=== PATIENT | female | born 1945 | race Caucasian/White ===

== ENCOUNTER 2023-01-26 10:25 | Emergency (ER) | payer MEDICARE, SELFPAY ==
--- NOTE | ~2023-01-26 | XR_ITS ---
XR chest 2V 01/26/2023 10:49 Indication: Shortness of breath. Rapid heart rate. Procedure: 2 view chest Comparison: No prior studies for comparison. Findings: Left lower lobe airspace disease which may represent atelectasis or pneumonia. Small left p leural effusion. Heart size normal. No pneumothorax. Impression: 1: Left lower lobe airspace disease may represent atelectasis or developing pneumonia. 2: Small left pleural effusion. Reviewed, dictated and finalized at location B. Impression: 1: Left lower lobe airspace disease may represent atelectasis or developing pne umonia. 2: Small left pleural effusion.
--- NOTE | 2023-01-26 10:33 | ECG_ITS ---
Measurements Intervals [place] Rate: 116 P: [place]: 0 QRS: -50 QRSD: 116 T: 200 QT: 342 QTc: 476 Interpretive Statements ATRIAL FIBRILLATION WITH RAPID VENTRICULAR RESPONSE LEFT ANTERIOR FASCICULAR BLOCK BORDERLINE ST-T WAVE ABNORMALITY- DIFFUSE LEADS BASELINE ARTIFACT- I, II, III, AVR, AVL, V1 ABNORMAL ECG NO PREVIOUS ECG AVAILABLE FOR COMPARISON Electronically Signed On 01-26-2023 11:47:25 CDT by Damon Lawrence D.O.
[2023-01-26 10:35] VITALS: BP 127/96; PULSE 81; RESP 20; TEMP 37; O2SAT 94
--- NOTE | 2023-01-26 10:39 | ED.SOB ---
HPI - SOB/Dyspnea General Chief Complaint: Shortness of Breath/Dyspnea Stated Complaint: Shortness of Breath Time Seen by Provider: 01/26/23 10:35 Source: patient, RN notes reviewed and old records reviewed Mode of arrival: ambulatory Limitations: no limitations History of Present Illness HPI Narrative: 78 year old female who presents to [facility] with complaints of shortness of breath especially with any exertion for the past week and orthopnea reported. Patient also reports that she has noted some swelling to her bilateral legs from knees down more prominent to pretibial area, ankles, and feet. Patient admits to having some palpitations and fluttering in her chest. Patient reports that she has seen a studio potter at [facility] through [facility] in [place] but has not been told she has had atrial fibrillation or had any heart attack in the past. Patient reports that she is diabetic, has hypertension, and also hyperlipidemia. MD elicited complaint: shortness of breath Pertinent past history: diabetes and other (hypertension, dyspnea and swelling of ankles and feet and also weight gain since November ) Onset (ago): week(s) (1) Exacerbating factors: lying flat, exertion and talking Related Data Home Medications Medication Instructions Recorded Confirmed B-complex with vitamin C 1 tablet PO DAILY 01/26/23 01/26/23 amlodipine 5 mg tablet 5 mg DAILY 01/26/23 01/26/23 aspirin 81 mg capsule 81 mg PO DAILY 01/26/23 01/26/23 calcium carbonate 600 mg-vitamin 1 tablet PO BID 01/26/23 01/26/23 D3 5 mcg (200 unit) tablet coenzyme Q10 100 mg capsule (Co 100 mg PO DAILY 01/26/23 01/26/23 Q-10) estradiol 0.5 mg tablet 0.5 mg PO DAILY 01/26/23 01/26/23 fenofibrate 160 mg tablet 160 mg PO HS 01/26/23 01/26/23 levothyroxine 200 mcg tablet 200 mcg PO DAILY 01/26/23 01/26/23 loratadine 10 mg tablet (Claritin) 10 mg PO DAILY 01/26/23 01/26/23 metformin 1,000 mg tablet 1,000 mg PO BID 01/26/23 01/26/23 metoprolol tartrate 50 mg tablet 50 mg PO BID 01/26/23 01/26/23 pioglitazone 15 mg tablet 15 mg PO DAILY 01/26/23 01/26/23 semaglutide 1 mg/dose (4 mg/3 mL) 1 mg subcut WEEKLY 01/26/23 01/26/23 subcutaneous pen injector (Ozempic) simvastatin 20 mg tablet 20 mg PO HS 01/26/23 01/26/23 valsartan 320 mg tablet 320 mg PO DAILY 01/26/23 01/26/23 Allergies Allergy/AdvReac Type Severity Reaction Status Date / Time lisinopril AdvReac Mild Cough Verified 01/26/23 10:35 Review of Systems Review of Systems: CONSTITUTIONAL: Denies fever, chills, or sweats. EYES: Denies visual changes, redness, or discharge. ENT: Denies rhinorrhea, congestion, sore throat, or otalgia. CARDIOVASCULAR: Denies chest pain,positive for palpitations, bilateral lower leg and feet edema. RESPIRATORY: Reports occasional cough, dyspnea with minimal exertion and also orthopnea. GASTROINTESTINAL: Denies abdominal pain, nausea, vomiting, or diarrhea. GENITOURINARY: Denies dysuria or hematuria. SKIN: Denies rash or itching. MUSCULOSKELETAL: Denies back pain, joint pain, or myalgia. NEUROLOGIC: Denies headache, numbness, or weakness. PSYCHIATRIC: Denies anxiety or depression. All systems reviewed & are unremarkable except as noted in HPI and below PMFSH Past Medical History Medical History Hyperlipidemia Hypertension Hypothyroidism Type 2 diabetes mellitus Surgical History Surgical History (Updated 01/26/23 @ 15:28 by Gisela Cardoza PA-C) History of cholecystectomy History of thyroidectomy Family History Family History Other Adopted Unknown family medical history Social History Social History (Updated 01/27/23 @ 00:11 by Gisela Cardoza PA-C) Social History: Surrogate medical decision maker: Sergio Diaz, son. Code status: Full code. Smoking status: Never smoker Alcohol intake: never Substance use: never Substance
[2023-01-26 10:40] VITALS: PULSE 116; O2SAT 100
== END 2023-01-26 11:20 | disposition short-term general hospital (02) ==
LOC: EXPBETH 10:29
PROVIDERS: Emergency Provider Registered Nurse
DX: I48.91 Unspecified atrial fibrillation (principal); R06.02 Shortness of breath; Z20.822 Contact with and (suspected) exposure to COVID-19; E78.5 Hyperlipidemia, unspecified; I10 Essential (primary) hypertension; E03.9 Hypothyroidism, unspecified; E11.9 Type 2 diabetes mellitus without complications
CPT/HCPCS: 71046; 87426; 87804; 93005; 99205; C9803; G0463

== ENCOUNTER 2023-01-26 11:50 | Inpatient (IN) | payer MEDICARE, SELFPAY ==
[2023-01-26] VITALS (17 sets, daily range): BP systolic 106–138; BP diastolic 85–101; PULSE 77–136; RESP 17–25; TEMP 36.2–36.4; O2SAT 96–100
--- NOTE | 2023-01-26 12:06 | ECG_ITS ---
Measurements Intervals [place] Rate: 118 P: [place]: 0 QRS: -46 QRSD: 111 T: 220 QT: 321 QTc: 451 Interpretive Statements ATRIAL FIBRILLATION WITH RAPID VENTRICULAR RESPONSE LEFT ANTERIOR FASCICULAR BLOCK POOR R WAVE PROGRESSION, ANTERIOR LEADS BORDERLINE ST-T WAVE ABNORMALITY- DIFFUSE LEADS BASELINE ARTIFACT- I, II, III, AVR, AVL ABNORMAL ECG COMPARED TO ECG 01/26/2023 10:40:53 NO SIGNIFICANT CHANGES Electronically Signed On 01-26-2023 12:20:34 CDT by Damon Lawrence D.O.
[2023-01-26 12:17] LABS: Basophils Percent Auto 0.6 % (0.2-1.2); Eosinophils Absolute Auto 0.1 K/mm3 (0-0.3); Eosinophils Percent Auto 1.8 % (0-4.4); Hematocrit 36.6 % (37.0-47.0); Hemoglobin 11.8 g/dL (12.0-15.0); Immature Granulocyte Absolute 0.01 K/mm3 (0.00-0.031); Immature Granulocyte Percent A 0.2 % (0-0.5); Lymphocytes Absolute Auto 0.92 K/mm3 (0.9-3.2); Lymphocytes Percent Auto 14.7 % (18.3-44.2); Mean Corpuscular HGB Conc 32.2 g/dl (32-36); Mean Corpuscular Hemoglobin 29.9 pg (26-34); Mean Corpuscular Volume 92.9 fl (80-100); Mean Platelet Volume 10.9 fl (7.4-10.4); Monocytes Absolute Auto 0.4 K/mm3 (0.1-0.6); Monocytes Percent Auto 6.5 % (2.6-8.5); Neutrophils Absolute Auto 4.8 K/mm3 (1.3-6.7); Neutrophils Percent Auto 76.2 % (45.5-73.1); Platelet Count Result 278 k/mm3 (150-375); Red Blood Count 3.94 M/mm3 (4.2-5.4); Red Cell Distribution Width 13.9 % (11.5-14.5); White Blood Count 6.3 K/mm3 (4.5-10.0)
[2023-01-26 12:32] LABS: Alanine Aminotransferase 18 U/L (6-35); Albumin Level 4.1 g/dL (3.5-5.1); Alkaline Phosphatase 34 U/L (38-126); Anion Gap 9 mmol/L (8-16); Aspartate Amino Transferase 26 U/L (14-36); Bilirubin,Total 0.8 mg/dL (0.2-1.3); Blood Urea Nitrogen 37 mg/dL (7-17); Calcium 8.6 mg/dL (8.4-10.2); Carbon Dioxide 24 mmol/L (22-30); Chloride 108 mmol/L (98-107); Estimated Glomerular Filt Rate 40; Glucose 161 mg/dL (65-110); Sodium 141 mmol/L (137-145)
--- NOTE | 2023-01-26 12:39 | PC.NURSE ---
Lab called regarding add ons.
[2023-01-26 13:01] LABS: INR 1.2; Prothrombin Time 16.3 Seconds (11.1-14.7)
[2023-01-26 13:05] LABS: NT Pro B Type Natriuretic Pept 5570 pg/mL (19.9-100)
--- NOTE | 2023-01-26 13:48 | ED.SOB ---
HPI - SOB/Dyspnea General Chief Complaint: Shortness of Breath/Dyspnea Stated Complaint: SOB, new afib, LE swelling Time Seen by Provider: 01/26/23 12:09 Source: patient Mode of arrival: ambulatory Limitations: no limitations History of Present Illness HPI Narrative: 78-year-old with a history of hypertension, hyperlipidemia, diabetes here with complaints of shortness of breath for past 1-1/2-week. Patient states that even with minimal ambulation she gets extremely short winded. Patient also states that she was in the grocery store could not walk even a half the distance. She denied any chest pain. No history of fever or chills. Denies cough. Family reports that she has a history of A-fib in the past but when she saw the hood fitter they could never identify A-fib.. MD elicited complaint: shortness of breath Onset (ago): week(s) (1.5) Severity: moderate Exacerbating factors: lying flat and exertion Relieving factors: rest Associated symptoms: denies other symptoms Treatment prior to arrival: none Related Data Home oxygen amount: none Home Medications Medication Instructions Recorded Confirmed amlodipine 5 mg tablet 5 mg DIRECTED 01/26/23 01/26/23 estradiol 0.5 mg tablet 0.5 mg DIRECTED 01/26/23 01/26/23 fenofibrate 160 mg tablet 160 mg DIRECTED 01/26/23 01/26/23 levothyroxine 200 mcg tablet 200 mcg DIRECTED 01/26/23 01/26/23 metformin 1,000 mg tablet 1,000 mg DIRECTED 01/26/23 01/26/23 metoprolol tartrate 50 mg tablet 50 mg DIRECTED 01/26/23 01/26/23 pioglitazone 15 mg tablet 15 mg DIRECTED 01/26/23 01/26/23 simvastatin 20 mg tablet 20 mg DIRECTED 01/26/23 01/26/23 valsartan 320 mg tablet 320 mg DIRECTED 01/26/23 01/26/23 Allergies Allergy/AdvReac Type Severity Reaction Status Date / Time lisinopril AdvReac Mild Cough Verified 01/26/23 10:35 Review of Systems Constitutional: Constitutional: Reports no additional constitutional complaints Eyes: Eyes: Reports no additional eye complaints ENT: Reports system reviewed and no additional complaints, except as documented Cardiovascular: Cardiovascular: Reports no additional cardiovascular complaints Respiratory: Respiratory: Reports as per HPI Gastrointestinal: Gastrointestinal: Reports no additional gastrointestinal complaints Musculoskeletal: Musculoskeletal: Reports no additional musculoskeletal complaints Neurologic: Reports system reviewed and no additional complaints, except as documented Psychiatric: Psychiatric: Reports no additional psychiatric complaints Endocrine: Endocrine: Reports no additional endocrine complaints Hematologic/Lymphatic: Hematologic/Lymphatic: Reports no additional hematologic/lymphatic complaints Allergic/Immunologic: Allergic/Immunologic: Reports no additional allergic/immunologic complaints Exam Narrative: GENERAL: Well-appearing, well-nourished, and in no acute distress. HEAD: Normocephalic, atraumatic. EYES: PERRLA and EOMI. ENT: Nares clear, no rhinorrhea or epistaxis. Mucous membranes moist. NECK: Supple. CHEST: Clear to auscultation. Except for basilar crackles. HEART: Tachycardic irregularly irregular. ABDOMEN: Soft, nontender, nondistended, normal active bowel sounds. EXTREMITIES: Normal range of motion. 2+ edema SKIN: Warm, dry, no rash. NEURO: No focal deficits. Alert and oriented x3. PSYCH: Normal mood and affect. Course Course Emergency Course: Notified patient and the family about her lab work, EKG findings. Agreed for admission. EKG showed A-fib with RVR with a heart rate 123 we will give her 10 of Cardizem and her BNP is elevated we will give her 40 of Lasix IV. We will admit her to the hospitalist consult cardiology Vital Signs Vital signs: Vital Signs Temperature 36.2 C L 01/26/23 11:53 Pulse Rate 102 H 01/26/23 11:53 Respiratory Rate 22 H 01/26/23 11:53 Blood Pressure 106/85 01/26/23 11:53 Pulse Oximetry 99 01/26/23 11:53 Oxygen Delivery Room
[2023-01-26] MEDS: dilTIAZem HCl INJ 25 MG/5 ML VIAL 10 MG IV PUSH (14:18)
[2023-01-26 14:50] LABS: Glucose Point of Care 137 mg/dl (65-105)
--- NOTE | 2023-01-26 15:24 | PM.IMHP ---
H&P: HPI History of Present Illness Date/Time: 01/26/23 16:30 Chief Complaint: Shortness of breath and new onset atrial fibrillation. Narrative: This is a very pleasant 78-year-old female with hypertension, hyperlipidemia, hypothyroidism, and type 2 diabetes mellitus who presented to the emergency department via EMS from [facility] for evaluation of shortness of breath and new onset atrial fibrillation. The patient provides the following history. Over the last 1 week or so she has developed sensations of racing heart ?like it is galloping? which has been nearly constant since the outset. She has been feeling short of breath with exertion and she is having difficulty sleeping due to feelings of shortness of breath when lying flat. Her legs have started to swell and are feeling tight. On occasion she feels lightheaded and dizzy and she has had some nausea and a couple of episodes of emesis. She decided to go to [facility] today for evaluation where she was found to be in new onset atrial fibrillation. She has not had exertional chest pain, she had a previous sleep study which showed no evidence of sleep apnea, she denies significant caffeine and alcohol use, and she believes her thyroid levels have been within normal limits. She has no known history of cardiac disease though she was referred to a general service officer with [facility] in [place] a couple of years ago ?because they were suspicious I had CHF.? Due to findings concerning for CHF she was given a dose of IV Lasix in the ED and she has had good urine output and she reports feeling a bit better at this time. Review of Systems Review of Systems: Twelve systems were reviewed. No fever, chills, or sweats. She denies cold and flu symptoms. No cough. Except as documented, all other systems were reviewed and are negative. [facility] Past Medical History Medical History Hyperlipidemia Hypertension Hypothyroidism Type 2 diabetes mellitus Surgical History Surgical History (Updated 01/26/23 @ 15:28 by Gisela Cardoza PA-C) History of cholecystectomy History of thyroidectomy Family History Family History Other Adopted Unknown family medical history Social History Social History (Updated 01/27/23 @ 00:11 by Gisela Cardoza PA-C) Social History: Surrogate medical decision maker: Sergio Diaz, son. Code status: Full code. Smoking status: Never smoker Alcohol intake: never Substance use: never Substance use type: does not use Lack of Transportation: No Lack of Food: Never True Current Housing: I Have Housing Concerned About Future Housing: No Difficulty Paying Gas/Electric Bills: No Difficulty Paying for Meds: No Currently Unemployed: No Education: High School Diploma/GED Difficulty w/ Childcare or Family Care: No Spiritual care concerns: No Meds Home Medications and Allergies Home Medications Medication Instructions Recorded Confirmed Type B-complex with vitamin C 1 tablet PO DAILY 01/26/23 01/26/23 History amlodipine 5 mg tablet 5 mg DAILY 01/26/23 01/26/23 History aspirin 81 mg capsule 81 mg PO DAILY 01/26/23 01/26/23 History calcium carbonate 600 mg-vitamin 1 tablet PO BID 01/26/23 01/26/23 History D3 5 mcg (200 unit) tablet coenzyme Q10 100 mg capsule (Co 100 mg PO DAILY 01/26/23 01/26/23 History Q-10) estradiol 0.5 mg tablet 0.5 mg PO DAILY 01/26/23 01/26/23 History fenofibrate 160 mg tablet 160 mg PO HS 01/26/23 01/26/23 History levothyroxine 200 mcg tablet 200 mcg PO DAILY 01/26/23 01/26/23 History loratadine 10 mg tablet (Claritin) 10 mg PO DAILY 01/26/23 01/26/23 History metformin 1,000 mg tablet 1,000 mg PO BID 01/26/23 01/26/23 History metoprolol tartrate 50 mg tablet 50 mg PO BID 01/26/23 01/26/23 History pioglitazone 15 mg tablet 15 mg PO DAILY 01/26/23 01/26/23 History
[2023-01-26] MEDS: FUROSEMIDE INJ 100 MG/10 ML VIAL (15:30)
[2023-01-26] MEDS: FUROSEMIDE INJ 40 MG/4 ML VIAL IV PUSH (15:30)
[2023-01-26 16:32] LABS: Hemoglobin A1C 6.7 % (<5.7)
--- NOTE | 2023-01-26 17:04 | PM.CNCAR ---
Assessment and Plan Assessment and plan (1) Atrial fibrillation with rapid ventricular response: Code(s): I48.91 - Unspecified atrial fibrillation Status: Acute Plan This is a 78-year-old lady who indicates by her history that she is known to have paroxysmal atrial fibrillation for several years. She is developing symptoms of shortness of breath and some evidence of CHF and presents with AFib with RVR. One would be fairly safe to presume she has been in atrial fibrillation for at least a week or 2 who have when the symptoms began. She otherwise is in no significant distress at this time. I indicated to the patient and her family that my initial tendency would be to recommend rate control and anticoagulation since the atrial fibrillation I believe has been present for a number of days. If she is stable any attempted cardioversion should be deferred after until she has been anticoagulated for at least 4 weeks. I will start out by advancing her metoprolol dosage from 50-100 mg, start apixaban 5 mg q.12 hours and I will give her some furosemide for her swelling and shortness of breath. Echocardiogram will be ordered. Her EKG is significantly abnormal with very poor precordial R-wave voltage is but she does state she has been evaluated by a machine washer elsewhere not found to have any significant structural cardiac findings. If we can provide rate control anticoagulation improve her symptomatology following discharge she tends to follow-up with her established machine washer who she states is a member of [facility] for further management. Arturo Becerra MD [facility] History of Present Illness History of Present Illness Consult date/time: 01/26/23 17:04 Reason For Visit: Atrial Fibrillation with RVR/CHF Narrative: This is a 78-year-old woman I am seeing at the request of the hospitalist because of atrial fibrillation. The patient is unknown to me prior to this encounter she receives her primary care and cardiovascular care elsewhere. She has been experiencing symptoms of shortness of breath with activity and for the last couple of days shortness of breath lying down in bed at night she had to get up at night the last couple of nights sitting in the edge of her bed to catch her breath. She has also noticed some increasing lower extremity edema. For these reasons she went to an urgent care center in [facility] and was felt to be in atrial fib with congestive heart failure and sent to [facility] emergency room for evaluation and admission. She receives her medical care elsewhere and so we do not have any immediate records of any of this although she is a reasonably good historian. Patient states that several years ago her primary care physician found her to be in atrial fibrillation and referred to a machine washer. She has sees her machine washer annually but she states that every time he sees her she is in normal rhythm. She reports having had an evaluation with echocardiography and stress testing without any significant abnormalities. She was in their office for the last appointment she believes in November of this year and was felt to be doing well at that time. She is not having any symptoms of chest pain pressure or heaviness. Her electrocardiogram here at [facility] shows AFib with rapid response and poor R-wave progression with a leftward axis. Her chest x-ray shows modest enlargement of her cardiac silhouette no significant congestion. Review of Systems Constitutional: Constitutional: Reports as per HPI Eyes: Eyes: Reports no additional eye complaints ENT: Reports system reviewed and no additional complaints, except as documented Cardiovascular: Comments: Nocturnal dyspnea and lower extremity edema Respiratory: Respiratory: Reports dyspnea on exertion Gastrointestinal: Gastrointestinal: Reports no additional gastrointestinal complaints Musculoskeletal: Musculoskeletal: Reports no additional musculosk
--- NOTE | 2023-01-26 17:05 | ADMGEN ---
This patient, Elena Diaz, was admitted to IMU Room 200-01 on 01/26/23 at 1635. Patient/family oriented to hospital policies and general routines including ID bracelet, bed and alarms, visiting hours, pain management, procedures, bathroom and other care routines, personal items, smoking policy, room service/diet, and visiting hours. Information on how to activate the Rapid Response Team has been discussed. Patient/Family are encouraged to report perceived risks to care and to ask questions if they do not understand what they are told or what they should do.
[2023-01-26 17:54] LABS: Troponin I < 0.012 ng/mL (0.000-0.034)
[2023-01-26] MEDS: FUROSEMIDE 20 MG TABLET PO (17:56)
[2023-01-26] MEDS: METOPROLOL SUCCINATE EXT REL 100 MG TABCR PO (17:56)
[2023-01-26 20:14] LABS: Free T4 Free Thyroxine Reflex 2.97 ng/dL (0.78-2.19)
[2023-01-26] MEDS: APIXABAN 5 MG TABLET PO (20:18)
[2023-01-26 20:38] LABS: Glucose Point of Care 140 mg/dl (65-105)
[2023-01-26 21:11] LABS: Troponin I < 0.012 ng/mL (0.000-0.034)
[2023-01-27] VITALS (18 sets, daily range): BP systolic 105–124; BP diastolic 71–94; PULSE 71–117; RESP 16–22; TEMP 35.6–36.5; O2SAT 97–99
--- NOTE | 2023-01-27 | ECHO_ITS ---
Patient Info Name: Elena Diaz Age: 78 years : 1945 Gender: Female Ht: 72 in Wt: 258 lbs BSA: 2.48 m2 HR: 120 bpm BP: 119 / 89 mmHg Heart Rhythm: Atrial Fibrillation Technical Quality: Fair Exam Date: 01/27/2023 10:46 AM Exam Location: [facility] Pulmonary Exam Room: 200 Patient Status: Inpatient Admit Date: 01/26/2023 Staff Ordering Physician: Josesito Guerin MD Plant Technical Specialist: Yamila John RDCS Attending Provider: Radha Bravo DO Exam Type: CA echo doppler color flow Study Info Indications - new onset afib chf Complete two-dimensional, color flow and Doppler transthoracic echocardiogram is performed. Summary 1. Complete two-dimensional, color flow and Doppler transthoracic echocardiogram is performed. 2. Left ventricular chamber dimension is mildly enlarged. 3. Left ventricular systolic function is severely reduced, estimated at 30-35%. 4. There is mildly increased left ventricular wall thickness. 5. The left ventricular diastolic function is indeterminate. 6. Right atrial chamber dimension is mildly enlarged. 7. Left atrial chamber dimension is severely enlarged. 8. Suspected patent foramen ovale visualized by color flow imaging. 9. There is mild aortic valve calcification. 10. The mitral valve has thickened leaflets and calcified annulus. 11. There is moderate mitral valve regurgitation. 12. There is mild tricuspid valve regurgitation. 13. Moderate pulmonary hypertension, estimated pulmonary arterial systolic pressure is 47 mmHg. 14. There is mild pulmonic regurgitation. 15. There is small pericardial effusion. Left Ventricle Left ventricular chamber dimension is mildly enlarged. Left ventricular systolic function is severely reduced, estimated at 30-35%. There is mildly increased left ventricular wall thickness. The left ventricular diastolic function is indeterminate. Right Ventricle Right ventricular chamber dimension is normal. Right ventricular systolic function is normal. Left Atria Left atrial chamber dimension is severely enlarged. Right Atria Right atrial chamber dimension is mildly enlarged. Atrial Septum Suspected patent foramen ovale visualized by color flow imaging. Aortic Valve The aortic valve is trileaflet. There is moderate aortic valve sclerosis. There is no aortic valve stenosis. There is trace aortic valve regurgitation. There is mild aortic valve calcification. Pulmonic Valve The pulmonic valve is normal. There is no pulmonic valve stenosis. There is mild pulmonic regurgitation. Mitral Valve The mitral valve has thickened leaflets and calcified annulus. There is no mitral valve stenosis. There is moderate mitral valve regurgitation. Tricuspid Valve The tricuspid valve leaflets are normal. There is no significant tricuspid valve stenosis. There is mild tricuspid valve regurgitation. Moderate pulmonary hypertension, estimated pulmonary arterial systolic pressure is 47 mmHg. Pericardium/Pleural The pericardium appears normal. There is small pericardial effusion. Inferior Vena Cava Dilated inferior vena cava with <50% collapse upon inspiration consistent with elevated right atrial pressure, 15 mmHg. Aorta The aortic root size at the sinus of Valsalva is normal. Left Ventricular Outflow Tract Name Value Normal LVOT 2D LVOT
[2023-01-27 00:16] LABS: Troponin I < 0.012 ng/mL (0.000-0.034)
[2023-01-27 05:15] LABS: Anion Gap 8 mmol/L (8-16); Blood Urea Nitrogen 37 mg/dL (7-17); Calcium 8.3 mg/dL (8.4-10.2); Carbon Dioxide 26 mmol/L (22-30); Chloride 105 mmol/L (98-107); Estimated Glomerular Filt Rate 43; Glucose 128 mg/dL (65-110); Magnesium 1.4 mg/dL (1.6-2.3); Potassium 3.5 mmol/L (3.4-5.0); Sodium 139 mmol/L (137-145)
[2023-01-27 08:12] LABS: Glucose Point of Care 113 mg/dl (65-105)
[2023-01-27] MEDS: VITAMIN B COMPLEX/VIT C CAPSULE 1 EACH PO (09:01)
[2023-01-27] MEDS: PIOGLITAZONE HCL 15 MG TAB PO (09:01)
[2023-01-27] MEDS: APIXABAN 5 MG TABLET PO ×2 (09:02→20:20)
[2023-01-27] MEDS: ASPIRIN 81 MG ENTERIC TABLET PO (09:02)
[2023-01-27] MEDS: LORATADINE 10 MG TABLET PO (09:02)
[2023-01-27] MEDS: estradioL 0.5 MG TABLET PO (09:02)
[2023-01-27] MEDS: FUROSEMIDE 20 MG TABLET PO (09:02)
[2023-01-27] MEDS: METOPROLOL SUCCINATE EXT REL 100 MG TABCR PO (09:58)
--- NOTE | 2023-01-27 10:28 | PM.IMPN ---
Progress Note: A&P Assessment and Plan (1) Atrial fibrillation with rapid ventricular response: Code(s): I48.91 - Unspecified atrial fibrillation Status: Acute Assessment and Plan: heart rate is still elevated despite increasing dose of metoprolol. Continue Eliquis. Appreciate Cardiology input. (2) Congestive heart failure: Code(s): I50.9 - Heart failure, unspecified Status: Acute Assessment and Plan: Continue diuretic. -1 L overall. Breathing is improved. (3) Renal insufficiency: Code(s): N28.9 - Disorder of kidney and ureter, unspecified Status: Acute Assessment and Plan: Baseline renal function is unknown. Monitor closely while diuresing. Records requested from her primary physician for comparison. (4) Hypertension: Code(s): I10 - Essential (primary) hypertension Status: Acute Assessment and Plan: Blood pressures were reviewed and they are stable. Continue antihypertensives and monitor. (5) Type 2 diabetes mellitus: Code(s): E11.9 - Type 2 diabetes mellitus without complications Status: Acute Assessment and Plan: Continue pioglitazone, hold metformin for now. Initiate sliding scale insulin, Accu-Cheks, and hypoglycemic protocol. Check A1c. (6) Hypothyroidism: Code(s): E03.9 - Hypothyroidism, unspecified Status: Acute Assessment and Plan: Continue levothyroxine and check TSH. Subjective Date/time seen: 01/27/23 10:28 Interval history: heart rate is still elevated Exam Narrative: General: Well-developed, nontoxic-appearing female sitting up in bed. Weight: 117.2 kg. HEENT: PERRL, EOMI. Sclera anicteric. Oral mucosa moist. Oropharynx clear. Neck: Supple. No obvious JVD. Respiratory: Mild conversational dyspnea. Lung sounds are a bit diminished but are otherwise clear to auscultation. Cardiovascular: Irregularly irregular rate and rhythm. Gastrointestinal: Abdomen is soft, nontender, and nondistended with positive bowel sounds. Skin: Warm and dry. No rash or lesions on limited exam. Extremities: No cyanosis or clubbing. 2+ pitting edema of the legs which softens towards the thighs. Neurological: Alert. Cranial nerves 2-12 are grossly intact. No gross focal deficits to casual conversation. Psychiatric: Pleasant and cooperative with normal mood and affect. Judgment and insight intact. Objective Data Vital Signs Vital Signs: Vital Signs - 24 hr 01/26/23 11:53 01/26/23 12:31 01/26/23 12:47 Temperature 97.1 F L Pulse Rate 102 H 111 H 119 H Respiratory Rate 22 H 21 H 21 H Blood Pressure 106/85 125/93 H 124/91 H Pulse Oximetry 99 96 96 Oxygen Delivery Room Air 01/26/23 13:00 01/26/23 13:02 01/26/23 14:31 Temperature Pulse Rate 115 H 118 H 111 H Respiratory Rate 25 H 23 H 21 H Blood Pressure 121/89 119/89 Pulse Oximetry 97 98 Oxygen Delivery 01/26/23 14:32 01/26/23 15:00 01/26/23 15:19 Temperature Pulse Rate 108 H 95 136 H Respiratory Rate 18 17 22 H Blood Pressure Pulse Oximetry 99 98 97 Oxygen Delivery 01/26/23 15:35 01/26/23 16:35 01/26/23 17:56 Temperature 97.3 F L Pulse Rate 110 H 112 H 112 H Respiratory Rate 19 20 Blood Pressure 138/101 H Pulse Oximetry 99 100 Oxygen Delivery 01/26/23 18:00 01/26/23 16:35 01/26/23 16:45 Temperature Pulse Rate 112 H 96 Respiratory Rate Blood Pressure Pulse Oximetry Oxygen Delivery Room Air 01/26/23 20:00 01/26/23 20:00 01/26/23 20:00 Temperature 97.5 F L Pulse Rate 77 109 H Respiratory Rate 20 Blood Pressure 114/87 Pulse Oximetry 100 Oxygen Delivery Room Air 01/26/23 22:00 01/26/23 23:32 01/26/23 23:59 Temperature 97.5 F L Pulse Rate 106 H 106 H Respiratory Rate 20 Blood Pressure 129/85 Pulse Oximetry 97 Oxygen Delivery Room Air 01/27/23 00:00 01/27/23 02:00 01/27/23 04:00 Temperature
--- NOTE | 2023-01-27 10:36 | PM.PNCARD ---
Progress Note: A&P Assessment and Plan (1) Atrial fibrillation with rapid ventricular response: Code(s): I48.91 - Unspecified atrial fibrillation Status: Acute Assessment and Plan: Heart rate is still a bit elevated. Continue metoprolol at this dose for now. May need further up titration or even plan for cardioversion depending on heart rate control before discharge. Continue Eliquis for anticoagulation. (2) Electrolyte imbalance: Code(s): E87.8 - Other disorders of electrolyte and fluid balance, not elsewhere classified Status: Acute Assessment and Plan: Potassium and magnesium were both low. Will give 4 g of IV magnesium and 40 mEq of p.o. potassium x1 (3) Hypertension associated with diabetes: Code(s): E11.59 - Type 2 diabetes mellitus with other circulatory complications; I15.2 - Hypertension secondary to endocrine disorders Status: Acute Assessment and Plan: Continue current regimen but blood pressure is a little soft and therefore will reduce her valsartan 160 mg daily (4) Chronic anticoagulation: Code(s): Z79.01 - terminal makeup operator (current) use of anticoagulants Status: Acute Assessment and Plan: Tolerating Eliquis Subjective Date/time seen: 01/27/23 10:36 Interval history: 78-year-old with atrial fibrillation, shortness of breath and palpitations Date of service 01/27/2023: Feeling a little bit better today but still feeling some palpitations and shortness of breath. No chest pain Review of Systems Constitutional: Constitutional: Reports as per HPI Eyes: Eyes: Reports no additional eye complaints ENT: Reports system reviewed and no additional complaints, except as documented Cardiovascular: Cardiovascular: Reports dyspnea on exertion Respiratory: Respiratory: Reports dyspnea on exertion Gastrointestinal: Gastrointestinal: Reports no additional gastrointestinal complaints Musculoskeletal: Musculoskeletal: Reports no additional musculoskeletal complaints Neurologic: Reports system reviewed and no additional complaints, except as documented Endocrine: Endocrine: Reports no additional endocrine complaints Hematologic/Lymphatic: Hematologic/Lymphatic: Reports no additional hematologic/lymphatic complaints Allergic/Immunologic: Allergic/Immunologic: Reports no additional allergic/immunologic complaints Exam Const: General: comfortable and no acute distress Other: Pleasant obese white female no distress of any kind HENMT: Mouth: Yes moist mucous membranes Eyes: Sclera: sclerae normal Neck: Neck: supple and no JVD Other: Carotid pulses are intact there are no audible bruits Resp: Effort & Inspection: normal respiratory effort Other: Breath sounds are somewhat tubular and distant no obvious wheezing or rales Cardio: Rhythm: abnormal rhythm irregularly irregular Other: PMI is difficult to palpate first and second heart sounds are irregular no audible murmur GI: Auscultation: normal bowel sounds Skin: General skin exam: normal color Neuro: Other: Alert and oriented x3 Extrem: Other: Adequate distal pulses. Mild to moderate bipedal edema Objective Data Vital Signs Vital Signs: Vital Signs - 24 hr 01/26/23 11:53 01/26/23 12:31 01/26/23 12:47 Temperature 36.2 C L Pulse Rate 102 H 111 H 119 H Respiratory Rate 22 H 21 H 21 H Blood Pressure 106/85 125/93 H 124/91 H Pulse Oximetry 99 96 96 Oxygen Delivery Room Air 01/26/23 13:00 01/26/23 13:02 01/26/23 14:31 Temperature Pulse Rate 115 H 118 H 111 H Respiratory Rate 25 H 23 H 21 H Blood Pressure 121/89 119/89 Pulse Oximetry 97 98 Oxygen Delivery 01/26/23 14:32 01/26/23 15:00 01/26/23 15:19 Temperature Pulse Rate 108 H 95 136 H Respiratory Rate 18 17 22 H Blood Pressure Pulse Oximetry 99 98 97 Oxygen Delivery 01/26/23 15:35 01/26/23 16:35 01/26/23 17:56 Temperature 36.3 C L Pulse
--- NOTE | 2023-01-27 11:15 | PC.NURSE ---
Trying to obtain Medical records from primary office, but patient has not had her first appointment. Her old Primary doctor retired.
[2023-01-27] MEDS: POTASSIUM CHLORIDE 20 MEQ TABLET 40 MEQ PO (11:18)
[2023-01-27] MEDS: MAGNESIUM SULF 4 GM/WATER100ML 4 GM/100 ML BAG IVPB (11:18)
[2023-01-27 12:00] LABS: Glucose Point of Care 132 mg/dl (65-105)
[2023-01-27 16:29] LABS: Glucose Point of Care 173 mg/dl (65-105)
[2023-01-27] MEDS: FENOFIBRATE 160 MG TABLET PO (20:20)
[2023-01-27] MEDS: SIMVASTATIN 20 MG TABLET PO (20:20)
[2023-01-27 20:29] LABS: Glucose Point of Care 191 mg/dl (65-105)
[2023-01-28] VITALS (19 sets, daily range): BP systolic 98–113; BP diastolic 64–80; PULSE 101–123; RESP 16–20; TEMP 36.1–36.5; O2SAT 97–100
[2023-01-28 07:48] LABS: Glucose Point of Care 148 mg/dl (65-105)
[2023-01-28 08:52] LABS: Anion Gap 9 mmol/L (8-16); Blood Urea Nitrogen 35 mg/dL (7-17); Calcium 8.4 mg/dL (8.4-10.2); Carbon Dioxide 28 mmol/L (22-30); Chloride 102 mmol/L (98-107); Estimated Glomerular Filt Rate 36; Glucose 204 mg/dL (65-110); Potassium 4.1 mmol/L (3.4-5.0); Sodium 139 mmol/L (137-145)
[2023-01-28] MEDS: VITAMIN B COMPLEX/VIT C CAPSULE 1 EACH PO (09:03)
[2023-01-28] MEDS: VALSARTAN 160 MG TABLET PO (09:04)
[2023-01-28] MEDS: PIOGLITAZONE HCL 15 MG TAB PO (09:04)
[2023-01-28] MEDS: METOPROLOL SUCCINATE EXT REL 100 MG TABCR PO (09:04)
[2023-01-28] MEDS: estradioL 0.5 MG TABLET PO (09:04)
[2023-01-28] MEDS: APIXABAN 5 MG TABLET PO ×2 (09:04→20:21)
[2023-01-28] MEDS: LORATADINE 10 MG TABLET PO (09:04)
[2023-01-28] MEDS: FUROSEMIDE 20 MG TABLET PO (09:04)
--- NOTE | 2023-01-28 10:22 | PM.PNCARD ---
Progress Note: A&P Assessment and Plan (1) Atrial fibrillation with rapid ventricular response: Code(s): I48.91 - Unspecified atrial fibrillation Status: Acute Assessment and Plan: Heart rate is still elevated. At this point, in my opinion, there is no reason to avoid cardioversion. She will need a LISSETTE. Plan for NPO after midnight and LISSETTE guided cardioversion the morning. Continue Eliquis for anticoagulation. 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 No chest pain Date of service 01/28/2023: Feels significantly better today. No chest pain or shortness of breath. Review of Systems Constitutional: Constitutional: Reports as per HPI Eyes: Eyes: Reports no additional eye complaints ENT: Reports system reviewed and no additional complaints, except as documented Cardiovascular: Cardiovascular: Reports dyspnea on exertion Respiratory: Respiratory: Reports dyspnea on exertion Gastrointestinal: Gastrointestinal: Reports no additional gastrointestinal complaints Musculoskeletal: Musculoskeletal: Reports no additional musculoskeletal complaints Neurologic: Reports system reviewed and no additional complaints, except as documented Endocrine: Endocrine: Reports no additional endocrine complaints Hematologic/Lymphatic: Hematologic/Lymphatic: Reports no additional hematologic/lymphatic complaints Allergic/Immunologic: Allergic/Immunologic: Reports no additional allergic/immunologic complaints Exam Const: General: comfortable and no acute distress Other: Pleasant obese white female no distress of any kind HENMT: Mouth: Yes moist mucous membranes Eyes: Sclera: sclerae normal Neck: Neck: supple and no JVD Other: Carotid pulses are intact there are no audible bruits Resp: Effort & Inspection: normal respiratory effort Other: Breath sounds are somewhat tubular and distant no obvious wheezing or rales Cardio: Rhythm: abnormal rhythm irregularly irregular Other: PMI is difficult to palpate first and second heart sounds are irregular no audible murmur GI: Auscultation: normal bowel sounds Skin: General skin exam: normal color Neuro: Other: Alert and oriented x3 Extrem: Other: Adequate distal pulses. Mild to moderate bipedal edema Objective Data Vital Signs Vital Signs: Vital Signs - 24 hr 01/27/23 11:47 01/27/23 11:59 01/27/23 12:00 Temperature 35.8 C L Pulse Rate 112 H 107 H Respiratory Rate 20 Blood Pressure 124/83 Pulse Oximetry 98 Oxygen Delivery Room Air 01/27/23 14:00 01/27/23 16:35 01/27/23 16:00 Temperature 35.7 C L Pulse Rate 100 71 Respiratory Rate 22 H Blood Pressure 121/94 H Pulse Oximetry 98 Oxygen Delivery Room Air 01/27/23 16:00 01/27/23 18:00 01/27/23 20:00 Temperature 36.3 C L Pulse Rate 91 102 H 117 H Respiratory Rate 16 Blood Pressure 110/75 Pulse Oximetry 99 Oxygen Delivery 01/27/23 20:00 01/27/23 20:00 01/27/23 22:00 Temperature Pulse Rate 102 H 105 H Respira
--- NOTE | 2023-01-28 11:25 | PM.IMPN ---
Progress Note: A&P Assessment and Plan (1) Atrial fibrillation with rapid ventricular response: Code(s): I48.91 - Unspecified atrial fibrillation Status: Acute Assessment and Plan: heart rate is still elevated despite increasing dose of metoprolol. Continue Eliquis. Appreciate Cardiology input. plan for LISSETTE. (2) Congestive heart failure: Code(s): I50.9 - Heart failure, unspecified Status: Acute Assessment and Plan: Continue diuretic. Respiratory status is much improved (3) Renal insufficiency: Code(s): N28.9 - Disorder of kidney and ureter, unspecified Status: Acute Assessment and Plan: Baseline renal function is unknown. Monitor closely while diuresing. Records requested from her primary physician for comparison. (4) Hypertension: Code(s): I10 - Essential (primary) hypertension Status: Acute Assessment and Plan: Blood pressures were reviewed and they are stable. Continue antihypertensives and monitor. (5) Type 2 diabetes mellitus: Code(s): E11.9 - Type 2 diabetes mellitus without complications Status: Acute Assessment and Plan: Continue pioglitazone, hold metformin for now. Initiate sliding scale insulin, Accu-Cheks, and hypoglycemic protocol. Check A1c. (6) Hypothyroidism: Code(s): E03.9 - Hypothyroidism, unspecified Status: Acute Assessment and Plan: Continue levothyroxine and check TSH. Subjective Date/time seen: 01/28/23 11:25 Interval history: Feeling better Exam Narrative: General: Well-developed, nontoxic-appearing female sitting up in bed. Weight: 117.2 kg. HEENT: PERRL, EOMI. Sclera anicteric. Oral mucosa moist. Oropharynx clear. Neck: Supple. No obvious JVD. Respiratory: Mild conversational dyspnea. Lung sounds are a bit diminished but are otherwise clear to auscultation. Cardiovascular: Irregularly irregular rate and rhythm. Gastrointestinal: Abdomen is soft, nontender, and nondistended with positive bowel sounds. Skin: Warm and dry. No rash or lesions on limited exam. Extremities: No cyanosis or clubbing. 2+ pitting edema of the legs which softens towards the thighs. Neurological: Alert. Cranial nerves 2-12 are grossly intact. No gross focal deficits to casual conversation. Psychiatric: Pleasant and cooperative with normal mood and affect. Judgment and insight intact. Objective Data Vital Signs Vital Signs: Vital Signs - 24 hr 01/27/23 11:47 01/27/23 11:59 01/27/23 12:00 Temperature 96.4 F L Pulse Rate 112 H 107 H Respiratory Rate 20 Blood Pressure 124/83 Pulse Oximetry 98 Oxygen Delivery Room Air 01/27/23 14:00 01/27/23 16:35 01/27/23 16:00 Temperature 96.2 F L Pulse Rate 100 71 Respiratory Rate 22 H Blood Pressure 121/94 H Pulse Oximetry 98 Oxygen Delivery Room Air 01/27/23 16:00 01/27/23 18:00 01/27/23 20:00 Temperature 97.4 F L Pulse Rate 91 102 H 117 H Respiratory Rate 16 Blood Pressure 110/75 Pulse Oximetry 99 Oxygen Delivery 01/27/23 20:00 01/27/23 20:00 01/27/23 22:00 Temperature Pulse Rate 102 H 105 H Respiratory Rate Blood Pressure Pulse Oximetry Oxygen Delivery Room Air 01/27/23 23:24 01/27/23 23:45 01/28/23 00:00 Temperature 97.2 F L Pulse Rate 110 H 107 H Respiratory Rate 16 Blood Pressure 108/78 Pulse Oximetry 97 Oxygen Delivery Room Air 01/28/23 02:00 01/28/23 03:58 01/28/23 04:00 Temperature Pulse Rate 103 H 102 H Respiratory Rate Blood Pressure Pulse Oximetry Oxygen Delivery Room Air 01/28/23 04:00 01/28/23 06:00 01/28/23 07:04 Temperature 97.7 F 96.9 F L Pulse Rate 107 H 117 H 110 H Respiratory Rate 16 16 Blood Pressure 113/80 106/76 Pulse Oximetry 99 97 Oxygen Delivery 01/28/23 08:12 01/28/23 09:04 01/28/23 08:00 Temperature Pulse Rate 115 H 118 H 123 H Respiratory Rat
[2023-01-28 12:02] LABS: Glucose Point of Care 191 mg/dl (65-105)
[2023-01-28 16:02] LABS: Glucose Point of Care 142 mg/dl (65-105)
[2023-01-28] MEDS: SIMVASTATIN 20 MG TABLET PO (20:21)
[2023-01-28] MEDS: FENOFIBRATE 160 MG TABLET PO (20:21)
[2023-01-28 20:46] LABS: Glucose Point of Care 210 mg/dl (65-105)
[2023-01-29] VITALS (25 sets, daily range): BP systolic 96–127; BP diastolic 8–94; PULSE 73–126; RESP 11–26; TEMP 35.9–36.5; O2SAT 97–100
[2023-01-29 05:25] LABS: Anion Gap 7 mmol/L (8-16); Blood Urea Nitrogen 41 mg/dL (7-17); Calcium 8.5 mg/dL (8.4-10.2); Carbon Dioxide 27 mmol/L (22-30); Chloride 104 mmol/L (98-107); Estimated Glomerular Filt Rate 34; Glucose 166 mg/dL (65-110); Magnesium 1.9 mg/dL (1.6-2.3); Potassium 4.2 mmol/L (3.4-5.0); Sodium 138 mmol/L (137-145)
[2023-01-29 08:01] LABS: Glucose Point of Care 164 mg/dl (65-105)
[2023-01-29] MEDS: PIOGLITAZONE HCL 15 MG TAB PO (09:08)
[2023-01-29] MEDS: VALSARTAN 160 MG TABLET PO (09:08)
[2023-01-29] MEDS: VITAMIN B COMPLEX/VIT C CAPSULE 1 EACH PO (09:08)
[2023-01-29] MEDS: estradioL 0.5 MG TABLET PO (09:08)
[2023-01-29] MEDS: METOPROLOL SUCCINATE EXT REL 100 MG TABCR PO (09:08)
[2023-01-29] MEDS: LORATADINE 10 MG TABLET PO (09:08)
[2023-01-29] MEDS: APIXABAN 5 MG TABLET PO ×2 (09:08→20:57)
--- NOTE | 2023-01-29 09:11 | ECG_ITS ---
Measurements Intervals [place] Rate: 79 P: NM: 0 QRS: -46 QRSD: 120 T: 230 QT: 405 QTc: 466 Interpretive Statements SINUS RHYTHM WITH INTERMITTENT ECTOPIC ATRIAL COMPLEXES ATRIAL PREMATURE COMPLEX LEFT ANTERIOR FASCICULAR BLOCK LEFT VENTRICULAR HYPERTROPHY WITH ST-T CHANGE BORDERLINE ST-T WAVE ABNORMALITY- ANTEROLAT/INF LEADS ABNORMAL ECG COMPARED TO ECG 01/29/2023 10:57:30 NO LONGER IN ATRIAL FIBRILLATION Electronically Signed On 01-29-2023 11:36:04 CDT by Damon Lawrence D.O.
--- NOTE | 2023-01-29 10:15 | ECG_ITS ---
Measurements Intervals [place] Rate: 119 P: OR: 0 QRS: -46 QRSD: 118 T: 157 QT: 331 QTc: 466 Interpretive Statements ATRIAL FIBRILLATION WITH RAPID VENTRICULAR RESPONSE LEFT ANTERIOR FASCICULAR BLOCK ST-T WAVE ABNORMALITY IN HIGH LATERAL LEADS- CONSIDER ISCHEMIA ABNORMAL ECG COMPARED TO ECG 01/26/2023 11:59:54 NO SIGNIFICANT CHANGES Electronically Signed On 01-29-2023 11:33:28 CDT by Damon Lawrence D.O.
--- NOTE | 2023-01-29 10:49 | WPDMODSED ---
Moderate Sedation Note-Pt Data Patient Data Diagnosis: Atrial fibrillation with rapid ventricular response hypertension non insulin-dependent diabetes Present Complaint: shortness of breath Procedure to be performed/Plan: rosana/cardioversion Allergies Allergy/AdvReac Type Severity Reaction Status Date / Time lisinopril AdvReac Mild Cough Verified 01/26/23 10:35 Home Medications Medication Instructions Recorded Confirmed Type B-complex with vitamin C 1 tablet PO DAILY 01/26/23 01/26/23 History amlodipine 5 mg tablet 5 mg DAILY 01/26/23 01/26/23 History aspirin 81 mg capsule 81 mg PO DAILY 01/26/23 01/26/23 History calcium carbonate 600 mg-vitamin 1 tablet PO BID 01/26/23 01/26/23 History D3 5 mcg (200 unit) tablet coenzyme Q10 100 mg capsule (Co 100 mg PO DAILY 01/26/23 01/26/23 History Q-10) estradiol 0.5 mg tablet 0.5 mg PO DAILY 01/26/23 01/26/23 History fenofibrate 160 mg tablet 160 mg PO HS 01/26/23 01/26/23 History levothyroxine 200 mcg tablet 200 mcg PO DAILY 01/26/23 01/26/23 History loratadine 10 mg tablet (Claritin) 10 mg PO DAILY 01/26/23 01/26/23 History metformin 1,000 mg tablet 1,000 mg PO BID 01/26/23 01/26/23 History metoprolol tartrate 50 mg tablet 50 mg PO BID 01/26/23 01/26/23 History pioglitazone 15 mg tablet 15 mg PO DAILY 01/26/23 01/26/23 History semaglutide 1 mg/dose (4 mg/3 mL) 1 mg subcut WEEKLY 01/26/23 01/26/23 History subcutaneous pen injector (Ozempic) simvastatin 20 mg tablet 20 mg PO HS 01/26/23 01/26/23 History valsartan 320 mg tablet 320 mg PO DAILY 01/26/23 01/26/23 History Current Medications: Active Medications Acetaminophen (Acetaminophen 325 Mg Tablet) 650 mg PO Q6H PRN PRN Reason: Mild Pain (1-3) or Fever Apixaban (Apixaban 5 Mg Tablet) 5 mg PO Q12HR JERILYN Last Admin: 01/29/23 09:08 Dose: 5 mg Calcium Carbonate (Calcium/Vitamin D 500 Mg Tablet) 500 mg PO BID [facility] Last Admin: 01/29/23 09:08 Dose: 500 mg Dextrose (Dextrose 50% 25 Gm/50 Ml Syringe) 12.5 gm IV PUSH PRN PRN; Protocol PRN Reason: Hypoglycemia Estradiol (Estradiol 0.5 Mg Tablet) 0.5 mg PO DAILY [facility] Last Admin: 01/29/23 09:08 Dose: 0.5 mg Fenofibrate (Fenofibrate 160 Mg Tablet) 160 mg PO HS [facility] Last Admin: 01/28/23 20:21 Dose: 160 mg Furosemide (Furosemide 20 Mg Tablet) 20 mg PO DAILY [facility] Last Admin: 01/28/23 09:04 Dose: 20 mg Glucagon (Glucagon For Inj 1 Mg Vial) 1 mg IM PRN PRN; Protocol PRN Reason: Hypoglycemia Glucose (Glucose Oral Gel 15 Gm Of Glucse In 37.5 Gm Tube) 15 gm PO PRN PRN; Protocol PRN Reason: Hypoglycemia Dextrose (Dextrose 5% 1,000 Ml) 1,000 mls @ 100 mls/hr IVPB PRN PRN; Protocol PRN Reason: Hypoglycemia Sodium Chloride (Normal Saline Iv) 1,000 mls @ 30 mls/hr IV CONT .Q24H [facility] Insulin Aspart (Insulin Aspart (*Bkc) 100 Units/Ml) 3 - 6 units SUB-Q TIDWM [facility]; Protocol Last Admin: 01/29/23 08:19 Dose: Not Given Loratadine (Loratadine 10 Mg Tablet) 10 mg PO DAILY [facility] Last Admin: 01/29/23 09:08 Dose: 10 mg Metoprolol Succinate (Metoprolol Succinate Ext Rel 100 Mg Tabcr) 100 mg PO QAM [facility] Last Admin: 01/29/23 09:08 Dose: 100 mg Coenzyme Q10 [Co Q- (10] 100 Mg Capsule) 1 each XX DAILY [facility] Stop: 02/26/23 08:59 Last Admin: 01/29/23 09:18 Dose: Not Given Ondansetron HCl (Ondansetron Inj 4 Mg/2 Ml Vial) 4 mg IV PUSH Q4H PRN PRN Reason: Nausea Pioglitazone HCl (Pioglitazone Hcl 15 Mg Tab) 15 mg PO DAILY [facility] Last Admin: 01/29/23 09:08 Dose: 15 mg Simvastatin (Simvastatin 20 Mg Tablet) 20 mg PO HS [facility] Last Admin: 01/28/23 20:21 Dose: 20 mg Valsartan (Valsartan 160 Mg Tablet) 160 mg PO QAM [facility] Last Admin: 01/29/23 09:08 Dose: 160 mg Vitamin B Complex/Vitamin C (Vitamin B Complex/Vit C Capsule) 1 each PO DAILY [facility] Last Admin: 01/29/23 09:08 Dose: 1 each Sedation/Anesthesia: No previous sedation/anesthesia problems (including family history). [facility] Past Medical History Medical History (Reviewed 01/27/23 @ 00:11 by Edilson
--- NOTE | 2023-01-29 11:03 | PM.IMPN ---
Progress Note: A&P Assessment and Plan (1) Atrial fibrillation with rapid ventricular response: Code(s): I48.91 - Unspecified atrial fibrillation Status: Acute Assessment and Plan: heart rate is still elevated despite increasing dose of metoprolol. Continue Eliquis. Appreciate Cardiology input. plan for LISSETTE with cardioversion. (2) Congestive heart failure: Code(s): I50.9 - Heart failure, unspecified Status: Acute Assessment and Plan: Continue diuretic. Respiratory status is much improved (3) Renal insufficiency: Code(s): N28.9 - Disorder of kidney and ureter, unspecified Status: Acute Assessment and Plan: Baseline renal function is unknown. Monitor closely while diuresing. Records requested from her primary physician for comparison. (4) Hypertension: Code(s): I10 - Essential (primary) hypertension Status: Acute Assessment and Plan: Blood pressures were reviewed and they are stable. Continue antihypertensives and monitor. (5) Type 2 diabetes mellitus: Code(s): E11.9 - Type 2 diabetes mellitus without complications Status: Acute Assessment and Plan: Continue pioglitazone, hold metformin for now. Initiate sliding scale insulin, Accu-Cheks, and hypoglycemic protocol. Check A1c. (6) Hypothyroidism: Code(s): E03.9 - Hypothyroidism, unspecified Status: Acute Assessment and Plan: Continue levothyroxine and check TSH. Subjective Date/time seen: 01/29/23 11:03 Interval history: heart rate still elevated Exam Narrative: General: Well-developed, nontoxic-appearing female sitting up in bed. Weight: 117.2 kg. HEENT: PERRL, EOMI. Sclera anicteric. Oral mucosa moist. Oropharynx clear. Neck: Supple. No obvious JVD. Respiratory: Mild conversational dyspnea. Lung sounds are a bit diminished but are otherwise clear to auscultation. Cardiovascular: Irregularly irregular rate and rhythm. Gastrointestinal: Abdomen is soft, nontender, and nondistended with positive bowel sounds. Skin: Warm and dry. No rash or lesions on limited exam. Extremities: No cyanosis or clubbing. 2+ pitting edema of the legs which softens towards the thighs. Neurological: Alert. Cranial nerves 2-12 are grossly intact. No gross focal deficits to casual conversation. Psychiatric: Pleasant and cooperative with normal mood and affect. Judgment and insight intact. Objective Data Vital Signs Vital Signs: Vital Signs - 24 hr 01/28/23 11:41 01/28/23 12:00 01/28/23 12:00 Temperature 97.6 F Pulse Rate 117 H 102 H Respiratory Rate 16 Blood Pressure 103/80 Pulse Oximetry 98 Oxygen Delivery Room Air 01/28/23 14:00 01/28/23 16:22 01/28/23 16:00 Temperature 97.1 F L Pulse Rate 111 H 101 H 108 H Respiratory Rate 20 Blood Pressure 99/64 L Pulse Oximetry 98 Oxygen Delivery 01/28/23 16:00 01/28/23 18:00 01/28/23 20:00 Temperature 97.7 F Pulse Rate 114 H 115 H Respiratory Rate 16 Blood Pressure 98/69 L Pulse Oximetry 100 Oxygen Delivery Room Air 01/28/23 20:00 01/28/23 20:00 01/28/23 22:00 Temperature Pulse Rate 122 H 122 H 108 H Respiratory Rate Blood Pressure Pulse Oximetry Oxygen Delivery Room Air 01/28/23 23:14 01/28/23 23:21 01/29/23 00:00 Temperature 96.9 F L Pulse Rate 108 H 108 H 98 Respiratory Rate 20 Blood Pressure 104/71 Pulse Oximetry 99 Oxygen Delivery Room Air 01/29/23 02:00 01/29/23 03:27 01/29/23 03:37 Temperature 96.9 F L Pulse Rate 114 H 121 H 113 H Respiratory Rate 20 Blood Pressure 111/76 Pulse Oximetry 98 Oxygen Delivery Room Air 01/29/23 04:00 01/29/23 06:00 01/29/23 08:08 Temperature 96.7 F L Pulse Rate 117 H 109 H 126 H Respiratory Rate 20 Blood Pressure 116/90 Pulse Oximetry 97 Oxygen Delivery 01/29/23 08:00 01/29/23 08:00 01/29/23 10:00 Temperature
--- NOTE | 2023-01-29 11:10 | WPDCARDPROC ---
Cardiac Cath Procedure Note Date of procedure:: 01/29/23 Performing physician:: Arturo Becerra MD Indication:: atrial fibrillation left ventricular systolic dysfunction hypertension diabetes Brief clinical history:: this is a 78-year-old woman who came to the hospital last week with the onset of shortness of breath for about a week to 10 days. She was found to be in AF with RVR in an urgent care center was sent to the hospital for evaluation. Her beta-nafisa was advanced to provide rate control and she was systemically anticoagulated with apixaban. Plans were made over the weekend to perform SASCHA cardioversion primarily because of the echo now showing left ventricular systolic dysfunction and the desire to restore sinus rhythm sooner than later. Procedure Procedure performed:: Sascha/cardioversion Sedation/Medication given:: IV propofol 1 bolus of 50 mg was used Estimated blood loss:: no blood loss Procedure note:: patient was brought to the cardiac catheterization lab holding area where she was in the postabsorptive state placed in the supine position with nasal cannula oxygen in place. Patient had renata pharyngeal up benzocaine used for topical anesthesia. She was then given a 50 mg dose of IV propofol which provided excellent sedation the esophageal ECHO probe was easily placed into the esophagus in the left atrium was visualized including the appendage. The left atrium is dilated significantly with spontaneous contrast or so-called smoke. The appendage did not have any visible thrombus however. Following this the SASCHA probe was removed and the patient was cardioverted with 200 joules in synchronized fashion x1 attempt which restored sinus rhythm with PACs. Findings:: As above Conclusion:: successful uncomplicated SASCHA cardioversion after confirmation of no left atrial appendage thrombus electrically cardioverted restoring sinus rhythm with 200 joules x1 shock. Arturo Becerra MD [facility]
--- NOTE | 2023-01-29 11:13 | ECHO_ITS ---
This document was recreated with the correct Report Title on 11/07/23.? The original document was signed by Arturo Becerra MD 01/29/23 1113. Date of procedure:: 01/29/23 Performing physician:: Arturo Becerra MD Indication:: atrial fibrillation left ventricular systolic dysfunction hypertension diabetes Brief clinical history:: this is a 78-year-old woman who came to the hospital last week with the onset of shortness of breath for about a week to 10 days. She was found to be in AF with RVR in an urgent care center was sent to the hospital for evaluation. Her beta-nafisa was advanced to provide rate control and she was systemically anticoagulated with apixaban. Plans were made over the weekend to perform SASCHA cardioversion primarily because of the echo now showing left ventricular systolic dysfunction and the desire to restore sinus rhythm sooner than later. Procedure Procedure performed:: Sascha/cardioversion Sedation/Medication given:: IV propofol 1 bolus of 50 mg was used Estimated blood loss:: no blood loss Procedure note:: patient was brought to the cardiac catheterization lab holding area where she was in the postabsorptive state placed in the supine position with nasal cannula oxygen in place. Patient had renata pharyngeal up benzocaine used for topical anesthesia. She was then given a 50 mg dose of IV propofol which provided excellent sedation the esophageal ECHO probe was easily placed into the esophagus in the left atrium was visualized including the appendage. The left atrium is dilated significantly with spontaneous contrast or so-called smoke. The appendage did not have any visible thrombus however. Following this the SASCHA probe was removed and the patient was cardioverted with 200 joules in synchronized fashion x1 attempt which restored sinus rhythm with PACs. Findings:: As above Conclusion:: successful uncomplicated SASCHA cardioversion after confirmation of no left atrial appendage thrombus electrically cardioverted restoring sinus rhythm with 200 joules x1 shock. Arturo Becerra MD [facility] This report may have been done utilizing a voice recognition system. Attempts have been made to correct errors. However, there may be uncorrected grammatical, spelling, and recognition errors present. Report Initialized date/time: Arturo Becerra MD 01/29/23 / 1113 Electronically signed by: Arturo Becerra MD 01/29/[address] [facility]
[2023-01-29 12:30] LABS: Glucose Point of Care 129 mg/dl (65-105)
[2023-01-29] MEDS: FUROSEMIDE 20 MG TABLET PO (13:03)
--- NOTE | 2023-01-29 14:56 | PCCCNOTE ---
On 01/29/23, the student, [Maryann Day], provided care and completed [facility] documentation on this patient. I have reviewed the student's documentation and agree with the findings.
[2023-01-29 16:05] LABS: Glucose Point of Care 156 mg/dl (65-105)
[2023-01-29 20:36] LABS: Glucose Point of Care 145 mg/dl (65-105)
[2023-01-29] MEDS: FENOFIBRATE 160 MG TABLET PO (20:57)
[2023-01-29] MEDS: SIMVASTATIN 20 MG TABLET PO (20:57)
[2023-01-30] VITALS (16 sets, daily range): BP systolic 93–127; BP diastolic 59–90; PULSE 90–115; RESP 18–20; TEMP 36.1–36.6; O2SAT 98–99
[2023-01-30 08:12] LABS: Glucose Point of Care 139 mg/dl (65-105)
[2023-01-30] MEDS: PIOGLITAZONE HCL 15 MG TAB PO (08:39)
[2023-01-30] MEDS: APIXABAN 5 MG TABLET PO ×2 (08:39→20:00)
[2023-01-30] MEDS: VALSARTAN 160 MG TABLET PO (08:39)
[2023-01-30] MEDS: LORATADINE 10 MG TABLET PO (08:39)
[2023-01-30] MEDS: METOPROLOL SUCCINATE EXT REL 100 MG TABCR PO ×2 (08:39→12:27)
[2023-01-30] MEDS: FUROSEMIDE 20 MG TABLET PO (08:39)
[2023-01-30] MEDS: estradioL 0.5 MG TABLET PO (08:39)
[2023-01-30] MEDS: VITAMIN B COMPLEX/VIT C CAPSULE 1 EACH PO (08:40)
--- NOTE | 2023-01-30 09:15 | P.CDI_ITS ---
CDI Query Clarification Request CHF noted in the assessment and plan. Elevated BNP on 01/26/23 lab work. Patient receiving Lasix. Patient presents with complaints of shortness of breath. Please specify type and acuity of heart failure if known. * Acute * Chronic * Acute on Chronic * Unknown * Systolic * Diastolic * Combined Systolic and Diastolic * Unknown <Angeline Soares RN - Last Filed: 01/30/23 09:19> Clarified Diagnosis Clarified Diagnosis: Acute on chronic systolic <Arturo Hodgson MD - Last Filed: 01/30/23 11:01>
--- NOTE | 2023-01-30 11:01 | PM.IMPN ---
Progress Note: A&P Assessment and Plan (1) Atrial fibrillation with rapid ventricular response: Code(s): I48.91 - Unspecified atrial fibrillation Status: Acute Assessment and Plan: heart rate is still elevated despite increasing dose of metoprolol. Continue Eliquis. Appreciate Cardiology input. unsuccessful LISSETTE with cardioversion. (2) Congestive heart failure: Code(s): I50.9 - Heart failure, unspecified Status: Acute Assessment and Plan: Continue diuretic. Respiratory status is much improved (3) Renal insufficiency: Code(s): N28.9 - Disorder of kidney and ureter, unspecified Status: Acute Assessment and Plan: Baseline renal function is unknown. Monitor closely while diuresing. Records requested from her primary physician for comparison. (4) Hypertension: Code(s): I10 - Essential (primary) hypertension Status: Acute Assessment and Plan: Blood pressures were reviewed and they are stable. Continue antihypertensives and monitor. (5) Type 2 diabetes mellitus: Code(s): E11.9 - Type 2 diabetes mellitus without complications Status: Acute Assessment and Plan: Continue pioglitazone, hold metformin for now. Initiate sliding scale insulin, Accu-Cheks, and hypoglycemic protocol. Check A1c. (6) Hypothyroidism: Code(s): E03.9 - Hypothyroidism, unspecified Status: Acute Assessment and Plan: Continue levothyroxine and check TSH. Subjective Date/time seen: 01/30/23 11:01 Interval history: heart rate is still elevated. Unsuccessful LISSETTE cardioversion Exam Narrative: General: Well-developed, nontoxic-appearing female sitting up in bed. Weight: 117.2 kg. HEENT: PERRL, EOMI. Sclera anicteric. Oral mucosa moist. Oropharynx clear. Neck: Supple. No obvious JVD. Respiratory: Mild conversational dyspnea. Lung sounds are a bit diminished but are otherwise clear to auscultation. Cardiovascular: Irregularly irregular rate and rhythm. Gastrointestinal: Abdomen is soft, nontender, and nondistended with positive bowel sounds. Skin: Warm and dry. No rash or lesions on limited exam. Extremities: No cyanosis or clubbing. 2+ pitting edema of the legs which softens towards the thighs. Neurological: Alert. Cranial nerves 2-12 are grossly intact. No gross focal deficits to casual conversation. Psychiatric: Pleasant and cooperative with normal mood and affect. Judgment and insight intact. Objective Data Vital Signs Vital Signs: Vital Signs - 24 hr 01/29/23 11:30 01/29/23 11:45 01/29/23 12:00 Temperature Pulse Rate 79 78 73 Respiratory Rate 11 L 17 18 Blood Pressure 102/84 113/77 115/94 H Pulse Oximetry 99 98 98 Oxygen Delivery Room Air Room Air Room Air Oxygen Flow Rate 01/29/23 11:05 01/29/23 11:10 01/29/23 11:15 Temperature Pulse Rate 73 81 75 Respiratory Rate 26 H 18 18 Blood Pressure 96/84 L 115/80 107/82 Pulse Oximetry 100 98 99 Oxygen Delivery Nasal Cannula Nasal Cannula Nasal Cannula Oxygen Flow Rate 3 3 3 01/29/23 12:00 01/29/23 12:00 01/29/23 14:00 Temperature Pulse Rate 78 106 H Respiratory Rate Blood Pressure Pulse Oximetry Oxygen Delivery Room Air Oxygen Flow Rate 01/29/23 16:09 01/29/23 16:00 01/29/23 16:00 Temperature 96.9 F L Pulse Rate 113 H 124 H Respiratory Rate 18 Blood Pressure 127/80 Pulse Oximetry 98 Oxygen Delivery Room Air Oxygen Flow Rate 01/29/23 18:00 01/29/23 20:00 01/29/23 20:00 Temperature 97.0 F L Pulse Rate 111 H 104 H 109 H Respiratory Rate 16 Blood Pressure 105/76 Pulse Oximetry 99 Oxygen Delivery Room Air Oxygen Flow Rate 01/29/23 20:00 01/29/23 22:00 01/29/23 22:28 Temperature 97.7 F Pulse Rate 115 H 114 H 112 H Respiratory Rate 16 Blood Pressure 111/73 Pulse Oximetry 99 Oxygen Delivery Oxygen Flow Rate 01/29/23 23:15 01/30/23 00:
--- NOTE | 2023-01-30 11:46 | PM.PNCARD ---
Progress Note: A&P Assessment and Plan (1) Atrial fibrillation with rapid ventricular response: Code(s): I48.91 - Unspecified atrial fibrillation Status: Acute Assessment and Plan: Underwent LISSETTE-guided cardioversion on 01/29 that did convert atrial fibrillation to sinus rhythm after 1 shock at 200 joules. However, patient is again back in atrial fibrillation with RVR. Increase Toprol XL to 200mg QD. Will start Amiodarone drip (limited options of antiarrhythmics due to LVEF 30-35%). Continue Eliquis for anticoagulation. (2) Hypertension associated with diabetes: Code(s): E11.59 - Type 2 diabetes mellitus with other circulatory complications; I15.2 - Hypertension secondary to endocrine disorders Status: Acute Assessment and Plan: Continue current regimen, continue low-dose valsartan (3) Chronic anticoagulation: Code(s): Z79.01 - MCC (current) use of anticoagulants Status: Acute Assessment and Plan: Tolerating Eliquis (4) Heart failure with reduced ejection fraction: Code(s): I50.20 - Unspecified systolic (congestive) heart failure Status: Acute Assessment and Plan: LVEF 30-35% per TTE 01/27/2023. Continue PO Lasix. Continue beta nafisa. Continue Valsartan. Subjective Date/time seen: 01/30/23 11:46 Interval history: Reason for visit: Atrial fibrillation with RVR 78-year-old with atrial fibrillation, shortness of breath and palpitations Date of service 01/27/2023: Feeling a little bit better today but still feeling some palpitations and shortness of breath. No chest pain Date of service 01/28/2023: Feels significantly better today. No chest pain or shortness of breath. Date of service 01/30/2023: Underwent cardioversion 01/[address] Becerra. She did convert to sinus rhythm with the cardioversion, but went back into atrial fibrillation overnight and is in RVR this morning. Review of Systems Review of Systems: 8 point ROS obtained. Negative, unless stated in HPI. Exam Const: General: comfortable and no acute distress Other: Pleasant obese white female in no distress of any kind HENMT: Mouth: Yes moist mucous membranes Eyes: Sclera: sclerae normal Neck: Neck: supple Resp: Effort & Inspection: normal respiratory effort Auscultation: clear to auscultation bilaterally Cardio: Rate: tachycardic Rhythm: abnormal rhythm irregularly irregular Skin: General skin exam: normal color Neuro: Speech: normal speech Other: Alert and oriented x3 Psych: Mental Status: mental status grossly normal Affect: normal affect Objective Data Vital Signs Vital Signs: Vital Signs - 24 hr 01/29/23 12:00 01/29/23 12:00 01/29/23 12:00 Temperature Pulse Rate 73 78 Respiratory Rate 18 Blood Pressure 115/94 H Pulse Oximetry 98 Oxygen Delivery Room Air Room Air 01/29/23 14:00 01/29/23 16:09 01/29/23 16:00 Temperature 36.1 C L Pulse Rate 106 H 113 H 124 H Respiratory Rate 18 Blood Pressure 127/80 Pulse Oximetry 98 Oxygen Delivery 01/29/23 16:00 01/29/23 18:00 01/29/23 20:00 Temperature 36.1 C L Pulse Rate 111 H 104 H Respiratory Rate 16 Blood Pressure 105/76 Pulse Oximetry 99 Oxygen Delivery Room Air 01/29/23 20:00 01/29/23 20:00 01/29/23 22:00 Temperature Pulse Rate 109 H 115 H 114 H Respiratory Rate Blood Pressure Pulse Oximetry Oxygen Delivery Room Air 01/29/23 22:28 01/29/23 23:15 01/30/23 00:00 Temperature 36.5 C Pulse Rate 112 H 108 H 105 H Respiratory Rate 16 Blood Pressure 111/73 Pulse Oximetry 99 Oxygen Delivery Room Air 01/30/23 02:00 01/30/23 03:17 01/30/23 04:00 Temperature Pulse Rate 96 91 97 Respiratory Rate Blood Pressure Pulse Oximetry Oxygen Delivery Room Air 01/30/23 04:00 01/30/23 06:00 01/30/23 08:00 Temperature 36.1 C L 36.4 C L Pulse Rate 94 108 H 102 H Respiratory Rate 1
[2023-01-30] MEDS: AMIODARONE 360 MG/D5W 200 ML 360 MG/200 ML BAG 33.33 MG IV CONT (12:27)
[2023-01-30 12:41] LABS: Glucose Point of Care 144 mg/dl (65-105)
[2023-01-30 16:30] LABS: Glucose Point of Care 214 mg/dl (65-105)
[2023-01-30] MEDS: AMIODARONE 360 MG/D5W 200 ML 360 MG/200 ML BAG 16.67 MG IV CONT (18:21)
[2023-01-30] MEDS: INSULIN ASPART (*BKC) 100 UNITS/ML SUB-Q (18:22)
[2023-01-30 19:58] LABS: Glucose Point of Care 167 mg/dl (65-105)
[2023-01-30] MEDS: SIMVASTATIN 20 MG TABLET PO (20:00)
[2023-01-30] MEDS: FENOFIBRATE 160 MG TABLET PO (20:00)
[2023-01-31] VITALS (11 sets, daily range): BP systolic 108–124; BP diastolic 73–83; PULSE 91–106; RESP 16–18; TEMP 36.1–36.6; O2SAT 96–99
[2023-01-31] MEDS: AMIODARONE 360 MG/D5W 200 ML 360 MG/200 ML BAG 16.67 MG IV CONT (05:53)
[2023-01-31 08:17] LABS: Glucose Point of Care 147 mg/dl (65-105)
[2023-01-31] MEDS: METOPROLOL SUCCINATE EXT REL 100 MG TABCR 200 MG PO (08:35)
[2023-01-31] MEDS: PIOGLITAZONE HCL 15 MG TAB PO (08:36)
[2023-01-31] MEDS: estradioL 0.5 MG TABLET PO (08:36)
[2023-01-31] MEDS: APIXABAN 5 MG TABLET PO (08:36)
[2023-01-31] MEDS: LORATADINE 10 MG TABLET PO (08:36)
[2023-01-31] MEDS: FUROSEMIDE 20 MG TABLET PO (08:36)
[2023-01-31] MEDS: VALSARTAN 160 MG TABLET PO (08:36)
[2023-01-31] MEDS: VITAMIN B COMPLEX/VIT C CAPSULE 1 EACH PO (08:37)
[2023-01-31 09:44] LABS: Hematocrit 38.4 % (37.0-47.0); Hemoglobin 12.1 g/dL (12.0-15.0); Mean Corpuscular HGB Conc 31.5 g/dl (32-36); Mean Corpuscular Hemoglobin 29.6 pg (26-34); Mean Corpuscular Volume 93.9 fl (80-100); Platelet Count Result 292 k/mm3 (150-375); Red Blood Count 4.09 M/mm3 (4.2-5.4); Red Cell Distribution Width 13.8 % (11.5-14.5); White Blood Count 6.5 K/mm3 (4.5-10.0)
[2023-01-31 10:00] LABS: Anion Gap 9 mmol/L (8-16); Blood Urea Nitrogen 36 mg/dL (7-17); Calcium 8.6 mg/dL (8.4-10.2); Carbon Dioxide 31 mmol/L (22-30); Chloride 97 mmol/L (98-107); Estimated Glomerular Filt Rate 36; Glucose 209 mg/dL (65-110); Magnesium 1.6 mg/dL (1.6-2.3); Potassium 3.8 mmol/L (3.4-5.0); Sodium 137 mmol/L (137-145)
--- NOTE | 2023-01-31 11:17 | PM.PNCARD ---
Progress Note: A&P Assessment and Plan (1) Atrial fibrillation with rapid ventricular response: Code(s): I48.91 - Unspecified atrial fibrillation Status: Acute Assessment and Plan: Underwent LISSETTE-guided cardioversion on 01/29 that did convert atrial fibrillation to sinus rhythm after 1 shock at 200 joules. However, patient went back into atrial fibrillation with RVR later that evening. Increased Toprol XL to 200mg QD. Started on Amiodarone drip. Is now rate controlled. Will switch IV Amiodarone drip to PO. Will have patient take Amiodarone 400mg PO TID x 1 week, followed by 400mg BID for 1 week, followed by 400mg PO once daily for maintenance. Continue Eliquis for anticoagulation. Okay to discharge home today from cardiac standpoint. Patient to follow up with her primary card boxer at [facility]. 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 Continue PO Lasix. Continue beta nafisa. Continue Valsartan. Further GDMT titration to be done as an outpatient. Plan Recommendations discussed in person with the Hospitalist. Subjective Date/time seen: 01/31/23 11:17 Interval history: Reason for visit: Atrial fibrillation with RVR 78-year-old with atrial fibrillation, shortness of breath and palpitations Date of service 01/27/2023: Feeling a little bit better today but still feeling some palpitations and shortness of breath. No chest pain Date of service 01/28/2023: Feels significantly better today. No chest pain or shortness of breath. Date of service 01/30/2023: Underwent cardioversion 01/[address] Becerra. She did convert to sinus rhythm with the cardioversion, but went back into atrial fibrillation overnight and is in RVR this morning. Date of service 02/01: Feeling well this morning. No symptoms. Remains in atrial fibrillation, but is rate controlled. Review of Systems Review of Systems: 8 point ROS obtained. Negative, unless stated in HPI. Exam Const: General: comfortable and no acute distress Other: Pleasant obese white female in no distress of any kind HENMT: Mouth: Yes moist mucous membranes Eyes: Sclera: sclerae normal Neck: Neck: supple Resp: Effort & Inspection: normal respiratory effort Auscultation: clear to auscultation bilaterally Cardio: Rhythm: abnormal rhythm irregularly irregular Skin: General skin exam: normal color Neuro: Speech: normal speech Other: Alert and oriented x3 Psych: Mental Status: mental status grossly normal Affect: normal affect Objective Data Vital Signs Vital Signs: Vital Signs - 24 hr 01/30/23 11:47 01/30/23 12:00 01/30/23 12:00 Temperature 36.3 C L Pulse Rate 107 H 97 Respiratory Rate 18 Blood Pressure 123/90 Pulse Oximetry 99 Oxygen Delivery Room Air 01/30/23 14:00 01/30/23 15:31 01/30/23 16:00 Temperature 36.6 C Pulse Rate 92 113 H 102 H Respiratory Rate 20 Blood Pressure 93/59 L Pulse Oximetry 98 Oxygen Delivery 01/30/23 18:00 01/30/23 16:00 01/30/23 20:00 Temperature Pulse Rate 102 H 99 Respiratory Rate Blood Pressure Pulse Oximetry Oxygen Delivery Room Air Room Air 01/30/23 20:00 01/30/23 20:00 01/30/23 22:00 Temperature 36.3 C L Pulse Rate 92 96 100 Respiratory Rate 20 Blood Pressure 113/73 Pulse Oximetry 99 Oxygen De
--- NOTE | 2023-01-31 11:45 | PM.DS ---
DS: Admitting Diagnosis Discharge Date 01/31/2023 Admitting Diagnosis Shortness of breath and new onset atrial fibrillation. DS: Discharge Diagnosis Discharge Diagnosis (1) Atrial fibrillation with rapid ventricular response: Code(s): I48.91 - Unspecified atrial fibrillation Status: Acute Assessment and Plan: heart rate is still elevated despite increasing dose of metoprolol. Continue Eliquis. Appreciate Cardiology input. unsuccessful LISSETTE with cardioversion. (2) Congestive heart failure: Code(s): I50.9 - Heart failure, unspecified Status: Acute Assessment and Plan: Continue diuretic. Respiratory status is much improved (3) Renal insufficiency: Code(s): N28.9 - Disorder of kidney and ureter, unspecified Status: Acute Assessment and Plan: Baseline renal function is unknown. Monitor closely while diuresing. Records requested from her primary physician for comparison. (4) Hypertension: Code(s): I10 - Essential (primary) hypertension Status: Acute Assessment and Plan: Blood pressures were reviewed and they are stable. Continue antihypertensives and monitor. (5) Type 2 diabetes mellitus: Code(s): E11.9 - Type 2 diabetes mellitus without complications Status: Acute Assessment and Plan: Continue pioglitazone, hold metformin for now. Initiate sliding scale insulin, Accu-Cheks, and hypoglycemic protocol. Check A1c. (6) Hypothyroidism: Code(s): E03.9 - Hypothyroidism, unspecified Status: Acute Assessment and Plan: Continue levothyroxine and check TSH. DS: Summary Hospital Course Reason for hospitalization: Shortness of breath and new onset atrial fibrillation. Narrative: This is a very pleasant 78-year-old female with hypertension, hyperlipidemia, hypothyroidism, and type 2 diabetes mellitus who presented to the emergency department via EMS from [facility] for evaluation of shortness of breath and new onset atrial fibrillation. The patient provides the following history. Over the last 1 week or so she has developed sensations of racing heart ?like it is galloping? which has been nearly constant since the outset. She has been feeling short of breath with exertion and she is having difficulty sleeping due to feelings of shortness of breath when lying flat. Her legs have started to swell and are feeling tight. On occasion she feels lightheaded and dizzy and she has had some nausea and a couple of episodes of emesis. She decided to go to [facility] today for evaluation where she was found to be in new onset atrial fibrillation. She has not had exertional chest pain, she had a previous sleep study which showed no evidence of sleep apnea, she denies significant caffeine and alcohol use, and she believes her thyroid levels have been within normal limits. She has no known history of cardiac disease though she was referred to a fur ironer with [facility] in [place] a couple of years ago ?because they were suspicious I had CHF.? Due to findings concerning for CHF she was given a dose of IV Lasix in the ED and she has had good urine output and she reports feeling a bit better at this time. Hospital Course: 78-year-old female presented with a atrial fibrillation with RVR was seen by Cardiology had a LISSETTE guided cardioversion and was successful and patient was converted to sinus rhythm however later in the day patient went back into atrial fibrillation with RVR and fur ironer started the patient on amiodarone drip, patient is rate is controlled now seen by cardiology started the patient tapering dose of amiodarone patient is clinically stable and will discharge the patient today to follow-up with fur ironer as outpatient Time Spent with Patient Time attestation: Total time spent providing and/or coordinating discharge services: Exam Narrative: Patient is comfortable, NA
[2023-01-31] MEDS: AMIODARONE HCL 200 MG TABLET 400 MG PO ×2 (11:52→12:05)
[2023-01-31 12:41] LABS: Glucose Point of Care 157 mg/dl (65-105)
== END 2023-01-31 15:00 | disposition home or self-care (01) | DRG 308 ==
LOC: ANHED 13:59 → ANHIMU 14:55
PROVIDERS: Chiropractor; Internal Medicine Cardiovascular Disease; Physician Assistant; Specialist; Admitting Provider Student in an Organized Health Care Education/Training Program; Emergency Provider Family Medicine; PCP Internal Medicine; Visit Provider Family Medicine
PROC: 5A2204Z Restoration of Cardiac Rhythm, Single (ICD-10-PCS; CPT 93312; principal; 2023-01-29 10:30)
PROC: 5A2204Z Restoration of Cardiac Rhythm, Single (ICD-10-PCS; 2023-01-29 10:30)
DX: I48.0 Paroxysmal atrial fibrillation (principal); I50.23 Acute on chronic systolic (congestive) heart failure; I11.0 Hypertensive heart disease with heart failure; E78.5 Hyperlipidemia, unspecified; E11.9 Type 2 diabetes mellitus without complications; E03.9 Hypothyroidism, unspecified; Z79.82 Long term (current) use of aspirin
CPT/HCPCS: 36415; 71046; 80048; 80053; 82948; 83036; 83735; 83880; 84439; 84443; 84484; 85025; 85027; 85610; 87426; 87804; 92960; 93005; 93306; 93312; 93320; 93325; 96365; 96375; 99205; 99285; A9270; C9803; G0378; G0463; J0282; J1815; J1940; J2704; J3475

== ENCOUNTER 2024-08-18 13:50 | Outpatient (CLI) | payer MEDICARE, SELFPAY ==
--- NOTE | ~2024-08-18 | CT_ITS ---
CT abdomen pelvis w con Ordering provider: Sury Becker, TUNNEL INSPECTOR History: 79 years Female with . LLQ ABDOMINAL PAIN . Comparison: None. Technique: CT abdomen and pelvis with IV and without oral contrast. Automated exposure control and it erative reconstruction technique were employed. The dose-length product was 1116.12 mGy-cm. 100 mL Om nipaque 350 was given IV. Findings: VISUALIZED LOWER CHEST: Nodule is a focal pneumonia is seen in the left lower lobe laterally. Nodule in the right lower lobe measuring 4 mm. Nodule is also seen in the right lower lobe medially which ma y be focal pneumonia. This nodule measures 8.[address] Follow-up in 6 months is advised. Trace of pericardial effusion is seen. UPPER ABDOMINAL ORGANS: Liver: Mild hepatomegaly. Gallbladder: Status post cholecystectomy. Spleen: Mild splenomegaly. Stomach/duodenum: Normal. Pancreas: Normal. Adrenals: Left adrenal mass is seen measuring 1.5 x 4.4 cm. MRI evaluation advised. Kidneys: Bilateral renal cysts are noted with the largest in the left upper pole measuring 8.3 x 7.9 cm. PELVIC ORGANS: The bladder is underfilled. BOWEL AND MESENTERY: Colon: No evidence of diverticulitis. The appendix is not demonstrated. Small Bowel: Normal. No obstruction. Peritoneum/mesentery: No free air or free fluid. No mesenteric lymphadenopathy. RETROPERITONEUM: Mild atheromatous disease of the abdominal aorta. No retroperitoneal lymphadenopat hy. MUSCULOSKELETAL: Superficial soft tissues: The superficial soft tissues are normal. Bones: Moderate degenerative changes of the spine. Mild dextroscoliosis. Bilateral sacroiliitis. IMPRESSION: 1. No evidence of appendicitis, diverticulitis or intestinal obstruction. 2. Left adrenal mass. Further evaluation with MRI is advised. 3. Bilateral renal cysts. 4. Multiple nodules in the lower lobes. [address] follow-up is advised. 5. Trace of pericardial effusion. 6. Mild hepatosplenomegaly. Reviewed, dictated and finalized at location A. [facility]
[2024-08-18 14:12] LABS: Estimated Glomerular Filt Rate 40
== END 2024-08-18 13:51 | disposition home or self-care (01) ==
LOC: MICIMG 13:51
PROVIDERS: PCP Internal Medicine; Visit Provider Nurse Practitioner
DX: D35.00 Benign neoplasm of unspecified adrenal gland (principal); N28.1 Cyst of kidney, acquired; R91.8 Other nonspecific abnormal finding of lung field; R16.2 Hepatomegaly with splenomegaly, not elsewhere classified
CPT/HCPCS: 74177; Q9967